=== PATIENT | female | born 1970 | race Caucasian/White ===

== ENCOUNTER 2023-11-20 03:20 | Emergency (ER) | payer MEDICARE, SELFPAY ==
[2023-11-20] VITALS (8 sets, daily range): BP systolic 128–182; BP diastolic 64–68; PULSE 74–103; RESP 13–18; TEMP 37; O2SAT 97–100
--- NOTE | ~2023-11-20 | US_ITS ---
RIGHT LOWER EXTREMITY VENOUS ULTRASOUND Ordering provider: Radha oCx MD History: . leg pain and swelling . Comparison: None. FINDINGS: --COMMON FEMORAL: Patent and free of thrombus. Normal compressibility, phasic flow and augmentation. --PROXIMAL SUPERFICIAL FEMORAL: Patent and free of thrombus. Normal compressibility, phasic flow and augmentation. --DISTAL SUPERFICIAL FEMORAL: Patent and free of thrombus. Normal compressibility, phasic flow and au gmentation. --POPLITEAL: Patent and free of thrombus. Normal compressibility, phasic flow and augmentation. --POSTERIOR TIBIAL: Patent and free of thrombus. Normal compressibility, phasic flow and augmentation . IMPRESSION: Negative right lower extremity venous US. No deep vein thrombosis. Reviewed, dictated and finalized at location A.
--- NOTE | ~2023-11-20 | CT_ITS ---
CT of the Abdomen and Pelvis: Indication: Abdominal pain, recent cardiac catheterization Technique: 2.5 mm axial scans were obtained through the abdomen and pelvis following intravenous adm inistration of 100 cc of Omnipaque 350. Dose reduction technique was used on this scan by utilizing a utomated exposure control and iterative reconstruction technique. The dose-length product (DLP) was 1 389.78 mGy-cm. Findings: Scans through the lung bases are unremarkable. The liver, spleen, pancreas, and right adrenal gland are within normal limits. Cholecystectomy clips are present. Kidneys are relatively atrophic bilaterally. 2.8 cm left adrenal nodule is present. Ther e are atherosclerotic calcifications of the aorta and iliac vessels. No lymphadenopathy. Questionable mild wall thickening sigmoid colon and descending colon. No bowel obstruction. No absces s or free air. Images through the pelvis were performed. Urinary bladder unremarkable. No adnexal mass seen. No asci nilda. No evidence of hematoma in the inguinal regions. Impression: Questionable mild large bowel wall thickening. Correlate for infectious/inflammatory colitis, or any possibility of early ischemic bowel. Under distention of the artifactual wall thickening is additiona l consideration. 2.8 cm indeterminate left adrenal nodule. Consider follow-up MR to attempt to confirm benign adenoma. Reviewed, dictated and finalized at location M. Impression: Questionable mild large bowel wall thickening. Correlate for infectious/inflamm atory colitis, or any possibility of early ischemic bowel. Under distention of the artifactual wall thickening is additional consideration. 2.8 cm indeterminate left adrenal nodule. Consider follow-up MR to attempt to c onfirm benign adenoma.
--- NOTE | 2023-11-20 03:31 | ECG_ITS ---
Test Date: 2023-11-20 03:50:22 Measurements Intervals [place] Rate: 71 P: 2 LA: 217 QRS: -42 QRSD: 96 T: -3 QT: 401 QTc: 436 Interpretive Statements SINUS RHYTHM WITH FIRST DEGREE AV BLOCK LEFT AXIS DEVIATION PATTERN CONSISTENT WITH PULMONARY DISEASE BASELINE ARTIFACT- I, II, III, AVR, AVL, AVF, V1-V6 BORDERLINE ECG No previous ECG available for comparison Electronically Signed On 11-20-2023 06:14:03 CDT by Vasyl Roman D.O.
--- NOTE | 2023-11-20 03:38 | ED.GENADULT ---
HPI - General Adult General Chief complaint: Unspecified <Radha Cox MD - Last Filed: 11/22/23 07:04> Stated complaint: PAIN AT CARDIAC CATH SITE INTO ABD <Radha Cox MD - Last Filed: 11/22/23 07:04> Time Seen by Provider: 11/20/23 03:25 <Radha Cox MD - Last Filed: 11/22/23 07:04> History of Present Illness HPI narrative: Patient is a 53-year-old female with history of ESRD on home hemodialysis, coronary artery disease is here with right lower quadrant abdominal pain. Patient had a cardiac catheterization performed on 11/17/2023. She reportedly had 1 stent placed in the right RCA by Dr. Calix at [facility], [place]. She has been doing okay over the weekend however she was having some right leg pain worse with walking. Around 2:00 a.m. in the morning she woke up to right lower quadrant abdominal pain which radiates underneath her right hand S. She states that she noted a quarter size of blood on her underwear. She contacted her volunteer fire fighter's office who recommended she come into the emergency department for evaluation. Patient does home hemodialysis, last dialyzed on Monday, did receive contrast during her cath on Monday. She denies fever, chills, cough, congestion. She is currently on plavix and a baby ASA. She has had chronic ongoing shortness of breath which was the reason for her outpatient cardiac cath, this is unchanged after procedure and into today. She does note prior DVT in the LLE, she notes her pain in her RLE feels somewhat similar since the procedure. <Radha Cox MD - Last Filed: 11/22/23 07:04> Related Data Allergies/adverse reactions: Allergies Allergy/AdvReac Type Severity Reaction Status Date / Time amitriptyline Allergy Unknown Other Verified 11/20/23 03:33 oxcarbazepine Allergy Unknown Anaphylactic Verified 11/20/23 03:33 Shock Sulfa (Sulfonamide Allergy Unknown Other Verified 11/20/23 03:33 Antibiotics) cyclobenzaprine Allergy Other Verified 11/20/23 03:33 [From Flexeril] nitrofurantoin Allergy Rash Verified 11/20/23 03:33 [From Macrodantin] <Radha Cox MD - Last Filed: 11/22/23 07:04> Review of Systems Review of Systems: All systems reviewed & are unremarkable except as noted in HPI and below <Radha Cox MD - Last Filed: 11/22/23 07:04> PMFSH Family History Family History: Family History (Updated 12/11/15 @ 23:19 by DOCTOR UNKNOWN) Father Hypertension Family history of elevated blood lipids Family history of kidney disease Family history of diabetes mellitus in first degree relative Mother Hypertension Family history of diabetes mellitus in first degree relative Other Diabetes mellitus Family history of rheumatoid arthritis Family history of sarcoidosis <Radha Cox MD - Last Filed: 11/22/23 07:04> Social History Social History: Social History Smoking status: Never smoker Second hand tobacco smoke exposure: No Alcohol intake: current <Radha Cox MD - Last Filed: 11/22/23 07:04> Exam Narrative: GENERAL: Well-appearing, well-nourished, and in no acute distress. HEAD: Normocephalic, atraumatic. EYES: PERRLA and EOMI. ENT: Nares clear. Mucous membranes moist. NECK: Supple. CHEST: Clear to auscultation. No respiratory distress. HEART: Regular rate and rhythm. Normal peripheral pulses. ABDOMEN: Soft, tenderness in the right upper quadrant and right lower quadrant. No groin swelling appreciated on the right side. She does have some dark blue ecchymosis present over the right side of her mons pubis. No active bleeding from her cath site in the right inguinal area. No pulsatile mass EXTREMITIES: Normal range of motion. No edema. No calf tenderness. SKIN: Warm, dry, no rash. NEURO: No focal deficits. Alert and oriented x3. PSYCH: Normal mood and affect. <Radha Cox MD - Last Filed: 11/22/23 07:04> Course Course Emergency Course: Discussed case with patient's volunteer fire fighter rachana
--- NOTE | 2023-11-20 04:23 | PC.NURSE ---
Patient states I rarely make urine, it can be days before I make any and its only drops. ERP notified.
--- NOTE | 2023-11-20 04:55 | PC.NURSE ---
Patient is a tough stick. This RN and 2 other RNs attempted to IV access with blood draw, unsuccessful. hard tile setter notified. supervisor microbiology technologists to attempt for IV access. supervisor microbiology technologists able to place IV, but not able to obtain blood work. Phlebotomy called for blood draw.
--- NOTE | 2023-11-20 06:30 | PC.NURSE ---
Phlebotomy called, they stated we will be there when were done with the morning rounds. stone sandblaster notified.
[2023-11-20 07:37] LABS: Lactic Acid Reflex 1.5 mmol/L (0.7-2.0)
[2023-11-20 07:38] LABS: Alanine Aminotransferase 12 U/L (6-35); Albumin Level 3.4 g/dL (3.5-5.1); Alkaline Phosphatase 147 U/L (38-126); Anion Gap 14 mmol/L (4-12); Aspartate Amino Transferase 15 U/L (14-36); Bilirubin,Total 0.4 mg/dL (0.2-1.3); Blood Urea Nitrogen 39 mg/dL (7-17); Calcium 9.4 mg/dL (8.4-10.2); Carbon Dioxide 25 mmol/L (22-30); Chloride 95 mmol/L (98-107); Estimated CRCL calculation 8 ml/min; Estimated Glomerular Filt Rate 5; Glucose 112 mg/dL (65-110); Potassium 3.8 mmol/L (3.4-5.0); Prothrombin Time 13.6 Seconds (11.1-14.7); Sodium 134 mmol/L (137-145)
[2023-11-20 07:39] LABS: Partial Thromboplastin Time 30.3 Seconds (22.3-36.8)
[2023-11-20 07:47] LABS: Basophils Absolute Auto 0.1 K/mm3 (0.0-0.1); Basophils Percent Auto 0.6 % (0.2-1.2); Eosinophils Absolute Auto 0.2 K/mm3 (0-0.3); Eosinophils Percent Auto 1.5 % (0-4.4); Hematocrit 24.2 % (37.0-47.0); Hemoglobin 7.6 g/dL (12.0-15.0); Immature Granulocyte Absolute 0.19 K/mm3 (0.00-0.031); Immature Granulocyte Percent A 1.3 % (0-0.5); Lymphocytes Percent Auto 7.6 % (18.3-44.2); Mean Corpuscular HGB Conc 31.4 g/dl (32-36); Mean Corpuscular Hemoglobin 32.9 pg (26-34); Mean Corpuscular Volume 104.8 fl (80-100); Mean Platelet Volume 11.5 fl (7.4-10.4); Monocytes Absolute Auto 0.8 K/mm3 (0.1-0.6); Monocytes Percent Auto 5.4 % (2.6-8.5); Neutrophils Absolute Auto 12.1 K/mm3 (1.3-6.7); Neutrophils Percent Auto 83.6 % (45.5-73.1); Platelet Count Result 254 k/mm3 (150-375); Red Blood Count 2.31 M/mm3 (4.2-5.4); Red Cell Distribution Width 13.1 % (11.5-14.5); White Blood Count 14.5 K/mm3 (4.5-10.0)
== END 2023-11-20 08:59 | disposition home or self-care (01) ==
PROVIDERS: Emergency Provider Student in an Organized Health Care Education/Training Program; PCP Emergency Medicine
DX: R10.31 Right lower quadrant pain (principal); D64.9 Anemia, unspecified; M79.604 Pain in right leg; N18.6 End stage renal disease; Z99.2 Dependence on renal dialysis; I25.10 Atherosclerotic heart disease of native coronary artery without angina pectoris; Z95.5 Presence of coronary angioplasty implant and graft
CPT/HCPCS: 36415; 74174; 80053; 83605; 85025; 85610; 85730; 93005; 93971; 99284; Q9967

== ENCOUNTER 2025-03-28 11:21 | Outpatient (CLI) | payer MEDICARE, SELFPAY ==
--- NOTE | ~2025-03-28 | XR_ITS ---
EXAMINATION: XR knee RT min 4V, 03/28/2025 11:38 NURSE RECRUITER HISTORY: presence of artificial knee COMPARISON: No comparisons available. Findings: No acute fracture or malalignment. Arthroplasty intact Soft tissues unremarkable. Impression: No acute fracture or malalignment. Reviewed, dictated and finalized at location P. E RECRUITER Impression: No acute fracture or malalignment.
--- NOTE | ~2025-03-28 | XR_ITS ---
EXAMINATION: XR knee LT min 4V, 03/28/2025 11:38 DATA RECOVERY PLANNER HISTORY: presence of artificial knee COMPARISON: No comparisons available. Findings: No acute fracture or malalignment. Arthroplasty intact Soft tissues unremarkable. Impression: No acute fracture or malalignment. Reviewed, dictated and finalized at location P. RECOVERY PLANNER Impression: No acute fracture or malalignment.
== END 2025-03-28 11:22 | disposition home or self-care (01) ==
PROVIDERS: PCP Family Medicine; Visit Provider Orthopaedic Surgery
DX: Z96.653 Presence of artificial knee joint, bilateral (principal)
CPT/HCPCS: 73564